=== PATIENT | female | born 1980 | race Caucasian/White ===

== ENCOUNTER 2019-10-14 01:15 | Emergency (ER) | payer OTHER, SELFPAY ==
[2019-10-14 01:17] VITALS: BP 100/77; PULSE 83; TEMP 36.9; O2SAT 98; BMI 24.7
--- NOTE | 2019-10-14 01:57 | CT_ITS ---
STUDY: CT ABDOMEN AND PELVIS WITHOUT CONTRAST REASON FOR EXAM: Female, 39 years old. LOWER BACK PAIN RIGHT SIDE, NEGATIVE PREG TEST RADIATION DOSAGE (If Supplied By Facility): CTDIvol = ( 6.04 ) mGy, DLP = ( 289.93 ) mGycm TECHNIQUE: Transaxial images were obtained from the dome of the diaphragm to the symphysis pubis without oral contrast, and without intravenous contrast. Sagittal and coronal images were reconstructed. Individualized dose optimization techniques were used for this CT. COMPARISON: None. FINDINGS: There is a small right pleural effusion. The visualized portions of the heart are within normal limits. Normal liver. Normal gallbladder and extrahepatic biliary system. Normal spleen. Normal pancreas. Normal bilateral adrenal glands. Normal right kidney. Normal left kidney. Normal visualized stomach. Normal small intestine. Normal colon. The appendix is visualized and appears normal. Normal abdominal aorta. Normal inferior vena cava. Normal retroperitoneum. Normal urinary bladder. There is 7 x 5.5 cm mass on the left side of the pelvis may represent an ovarian mass or hemorrhagic cyst. Normal abdominal wall. 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 There is a small right pleural effusion. There is 7 x 5.5 cm mass on the left side of the pelvis may represent an ovarian mass or hemorrhagic cyst. Electronically Signed: Dean Persaud, at 3:56 EDT Tel , Service support ,
[2019-10-14] MEDS: Ketorolac 30 MG/ML Syringe IV (02:10)
[2019-10-14] MEDS: 0.9% Normal Saline 1,000 ML 1000 ML IV (02:11)
[2019-10-14 02:18] LABS: Absolute Lymphocyte Count 0.89 X10^3/uL (0.83-4.51); Absolute Neutrophil Count 8.3 X10^3/uL (2.0-7.7); Basophil# 0.04 X10^3/uL; Basophil% 0.4 % (0-1); Eosinophil# 0.05 X10^3/uL; Eosinophils% 0.5 % (0-5); Hematocrit 38.1 % (37-47); Hemoglobin 12.3 g/dL (12.0-15.0); Lymphocyte # 0.89 X10^3/ul (4.0); Lymphocyte % 8.8 % (19-41); Mean Corp Hgb Conc 32.3 g/dL (32-36); Mean Corpuscular Hgb 29.4 pg (27.0-32.0); Mean Corpuscular Volume 90.9 fL (81-99); Mean Platelet Vol. 10.5 fl (6.2-12.0); Monocyte# 0.85 X10^3/uL; Monocyte% 8.4 % (0-10); NRBC Flagged by Analyzer 0 % (0-5); Neutrophil # 8.25 X10^3/uL (2.7-7.7); Neutrophil % 81.7 % (47-70); Platelet Count 208 K/mm3 (150-450); RBC Distribution Width CV 12.3 % (11.6-14.6); RBC Distribution Width SD 40.7 fl (35.1-43.9); Red Blood Count 4.19 M/mm3 (4.2-5.4); White Blood Count 10.1 K/mm3 (4.4-11.0)
[2019-10-14 02:29] LABS: Internal QC Validated? YES +Cl - CLEAR BKGD; Pregnancy, Serum, hCG Quali. NEGATIVE Negative
[2019-10-14 02:36] LABS: ALB/GLOB Ratio 0.9 RATIO (0.9-2.4); AST(SGOT) 12 U/L (15-37); Alanine Aminotransfer ALT/SGPT 16 U/L (13-56); Albumin, Serum 3.3 g/dL (3.2-5.0); Alkaline Phosphatase 61 U/L (45-117); Anion Gap 5 (5-15); BUN 9 mg/dL (7-18); Calcium,Total 8.7 mg/dL (8.5-10.1); Chloride 108 mmol/L (98-107); Creatinine, Serum 0.56 mg/dL (0.55-1.02); EST Glomerular Filtration Rate 126 mL/min (>60); Est Glom Filt Rate - Afr Amer 153 mL/min (>60); Estimated Creatinine Clearance 109.36 ml/min; Globulin 3.7 g/dL (2.2-4.2); Glucose 104 mg/dL (74-106); Lipase 60 U/L (73-393); Potassium 3.5 mmol/L (3.5-5.1); Sodium Level 143 mmol/L (136-145)
[2019-10-14] MEDS: Morphine 4 MG/ML Syringe IV (03:27)
[2019-10-14 03:36] LABS: Bacteria 0 SEEN /hpf (None Seen); Mucous, Urine 0 SEEN /hpf (<or=2+); Squamous Epithelial Cells - UA 0 SEEN /hpf (5-10); White Blood Cells 0 SEEN /hpf (0-5)
[2019-10-14 03:43] LABS: Color, Urine Yellow (Yellow); Glucose, Dipstick Normal (Normal); Ketone-Dipstick Negative (Negative); Leukocyte Esterase-Dipstick Negative /ul (Negative); Nitrite-Dipstick Negative (Negative); Occult Blood-Urine 25 /ul (Negative); Protein-Dipstick Negative (Negative); Urine Bilirubin Dipstick Negative (Negative); Urine Clarity Clear (Clear); Urine Urobilinogen Normal (Normal)
[2019-10-14 03:48] LABS: Red Blood Cells-Urine 5-10 SEEN /hpf (0-5)
[2019-10-14 03:55] VITALS: BP 105/60; PULSE 65; RESP 18; O2SAT 99
--- NOTE | 2019-10-14 04:37 | ED.DCSUM_ITS ---
- ER Visit Summary Date of Service: 10/14/19 Chief Complaint: Right flank pain History of Present Illness: The patient is a 39 F with right flank pain that started last night overnight. Worse with breathing and moving. It does not radiate. 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 No sh ortness of breath, fever, or cough. Physical Examination: Afebrile and vital signs unremarkable. Patient alert and oriented. No acute distress. She does have some right flank tenderness to palpation. No guarding or rebound. Otherwise her exam is unremarkable. Test Results and emergency department course: test negative. Urinalysis showed a very small amount of red blood cells, 5-10. No sign of infection. CBC, CMP, lipase unremarkable. CT shows chronic spine degenerative changes as well as a small right pleural effusion. There is a 7 x 5 cm mass in the left pelvis concerning for mass or cyst. Patient is not having pain on the left side. Her work-up does not explain her right flank pain. I suppose she may have a cyst with some diaphragmatic irritation causing her symptoms. She is feeling well after pain medicine and would like to go home and follow-up as an outpatient. Believe this is reasonable. She has a doctor and will follow-up for ultrasound. Ultrasound is not available at this time of day, and the patient was explicitly advised that she will need a follow-up ultrasound. I also explained risks of torsion and other surgical complications, and she will return right away if she has any issues. She will not wait for outpatient follow-up. Patient was given a course of pain medicine and will be discharged. All questions were answered. Treatment Plan: As above Disposition: Discharge Impression: Right flank pain, left ovarian mass This note was generated with [employer] dictation software. It may contain incorrect words, spelling, and punctuation that were not noted in review of the chart prior to signing ED Disposition - Plan for ED Patient: Referrals: Soco Kimball MD [Primary Care Provider] -
--- NOTE | 2019-10-14 04:41 | ED.DEP ---
ED Disposition - Plan for ED Patient: Instructions: ED Flank Pain Uncertain Cause Prescriptions: Oxycodone HCl/Acetaminophen [Percocet 5/325] 1 tab PO Q6H PRN PRN 3 Days #12 tab PRN Reason: Pain Prescription Printed Referrals: Soco Kimball MD [Primary Care Provider] -
[2019-10-14 04:55] VITALS: BP 117/83; PULSE 99; RESP 18; O2SAT 97
== END 2019-10-14 04:58 | disposition home or self-care (01) ==
PROVIDERS: Emergency Provider Emergency Medicine; PCP Family Medicine
DX: R10.9 Unspecified abdominal pain (principal)
CPT/HCPCS: 74176; 80053; 81001; 83690; 84703; 85025; 96361; 96374; 96375; 99283; J7030

== ENCOUNTER → 2019-10-17 13:41 | Outpatient (CLI) | payer SELFPAY ==
[2019-10-14 01:17] VITALS: BMI 24.7
--- NOTE | 2019-10-17 13:49 | US_ITS ---
STUDY: ULTRASOUND OF THE FEMALE PELVIS - COMPLETE REASON FOR EXAM: Female, 39 years old. Ovarian cyst TECHNIQUE: Transabdominal and Transvaginal TECHNICAL QUALITY: Adequate. COMPARISON: CT dated 10/14/2019 FINDINGS: The uterus is anteverted and is in a midline position. The uterus measures 10.0 x 5.1 x 4.0 cm. Normal uterine cervix. The endometrium measures 9 mm in thickness, and is hyperechoic. There is no demonstrated endometrial mass. There is no demonstrated myometrial mass. The right ovary is visualized. The right ovary measures 1.9 x 1.3 x 1.1 cm. There is no right ovarian cyst or ovarian mass. There is no visualized right adnexal mass or complex lesion. There is normal arterial and normal venous vascularity. The left ovary is visualized. The left ovary measures 7.6 x 6.1 x 4.5 cm. There is a 7.0 x 5.3 x 4.7 cm complex cyst in the left ovary. There is no visualized left adnexal mass or complex lesion. There is normal arterial and normal venous vascularity. There is no fluid in the cul-de-sac. US/Pelvic (Non ) IMPRESSION: 7.0 x 5.3 x 4.7 cm complex cyst in the left ovary. May represent an endometrioma. Follow-up sonography or further evaluation with MRI is recommended. Otherwise, unremarkable pelvic ultrasound. Electronically Signed: Jose F Rosenthal, at 16:40 EDT Tel , Service support ,
--- NOTE | 2019-10-17 13:50 | US_ITS ---
STUDY: ULTRASOUND OF THE FEMALE PELVIS - COMPLETE REASON FOR EXAM: Female, 39 years old. Ovarian cyst TECHNIQUE: Transabdominal and Transvaginal TECHNICAL QUALITY: Adequate. COMPARISON: CT dated 10/14/2019 FINDINGS: The uterus is anteverted and is in a midline position. The uterus measures 10.0 x 5.1 x 4.0 cm. Normal uterine cervix. The endometrium measures 9 mm in thickness, and is hyperechoic. There is no demonstrated endometrial mass. There is no demonstrated myometrial mass. The right ovary is visualized. The right ovary measures 1.9 x 1.3 x 1.1 cm. There is no right ovarian cyst or ovarian mass. There is no visualized right adnexal mass or complex lesion. There is normal arterial and normal venous vascularity. The left ovary is visualized. The left ovary measures 7.6 x 6.1 x 4.5 cm. There is a 7.0 x 5.3 x 4.7 cm complex cyst in the left ovary. There is no visualized left adnexal mass or complex lesion. There is normal arterial and normal venous vascularity. There is no fluid in the cul-de-sac. US/Transvaginal Non- IMPRESSION: 7.0 x 5.3 x 4.7 cm complex cyst in the left ovary. May represent an endometrioma. Follow-up sonography or further evaluation with MRI is recommended. Otherwise, unremarkable pelvic ultrasound. Electronically Signed: Jose F Galo, at 16:40 EDT Tel , Service support ,
== END ==
PROVIDERS: PCP Family Medicine; Referring Provider Family Medicine; Visit Provider Family Medicine
DX: R10.9 Unspecified abdominal pain (principal)
CPT/HCPCS: 76830; 76856

== ENCOUNTER → 2019-11-06 15:57 | Outpatient (CLI) | payer OTHER, SELFPAY ==
[2019-10-14 01:17] VITALS: BMI 24.7
[2019-11-08 13:48] LABS: Cancer Antigen 125 15.6 U/mL (0.0-38.1)
[2019-11-11 20:32] LABS: HPV Reflexed? NOT INDICATED
== END ==
PROVIDERS: PCP Family Medicine; Visit Provider Obstetrics & Gynecology
DX: Z12.4 Encounter for screening for malignant neoplasm of cervix (principal); N83.209 Unspecified ovarian cyst, unspecified side
CPT/HCPCS: 36415; 86304; 88175; G0145

== ENCOUNTER → 2020-05-18 11:58 | Outpatient (CLI) | payer OTHER, SELFPAY ==
[2020-05-20 14:43] LABS: Cancer Antigen 125 25.1 U/mL (0.0-38.1)
== END ==
PROVIDERS: PCP Family Medicine; Visit Provider Obstetrics & Gynecology
DX: N83.202 Unspecified ovarian cyst, left side (principal)
CPT/HCPCS: 36415; 86304

== ENCOUNTER 2020-06-14 09:31 | Inpatient (IN) | payer SELFPAY, OTHER ==
[2020-06-10 13:14] LABS: Absolute Lymphocyte Count 1.39 X10^3/uL (0.83-4.51); Absolute Neutrophil Count 2.8 X10^3/uL (2.0-7.7); Basophil# 0.06 X10^3/uL; Basophil% 1.3 % (0-1); Eosinophil# 0.06 X10^3/uL; Eosinophils% 1.3 % (0-5); Hematocrit 41.7 % (37-47); Hemoglobin 14.2 g/dL (12.0-15.0); Lymphocyte # 1.39 X10^3/ul (4.0); Lymphocyte % 30.2 % (19-41); Mean Corp Hgb Conc 34.1 g/dL (32-36); Mean Corpuscular Hgb 29.9 pg (27.0-32.0); Mean Corpuscular Volume 87.8 fL (81-99); Mean Platelet Vol. 10.8 fl (6.2-12.0); Monocyte# 0.31 X10^3/uL; Monocyte% 6.7 % (0-10); NRBC Flagged by Analyzer 0 % (0-5); Neutrophil # 2.78 X10^3/uL (2.7-7.7); Neutrophil % 60.3 % (47-70); Platelet Count 259 K/mm3 (150-450); RBC Distribution Width CV 12.1 % (11.6-14.6); RBC Distribution Width SD 38.9 fl (35.1-43.9); Red Blood Count 4.75 M/mm3 (4.2-5.4); White Blood Count 4.6 K/mm3 (4.4-11.0)
[2020-06-10 13:20] LABS: International Normalized Ratio 0.9
[2020-06-10 13:53] LABS: Creatinine, Serum 0.64 mg/dL (0.55-1.02); EST Glomerular Filtration Rate 108 mL/min (>60); Est Glom Filt Rate - Afr Amer 130 mL/min (>60)
--- NOTE | 2020-06-13 19:45 | PCM.HP.BLA ---
History and Physical Date of Admission: 06/14/20 Surgical History and Physical Eulalia Feranndes, a 39 year old female 5 0 0 0 5, presents for JEM/BSO on June 14, 2020 at 7:30. -- Continued Pain from Endometrioma; Left Complex Ovarian Cyst; Left Ovarian Endometrioma -- U/S showed 7 cm complex cyst on Lt ovari. She has painful menses. She has some pain when she is not on her menses. Reports she continues to have pain/discomfort on her (L) side if she is working or bending. Reports last October when she was here, she had an ovarian cyst on the (L) and endometriosis pain, and she has been feeling these same types of pains in the last couple of months. Has been having a lot of cramping/aching. Previous Cyst on (L) Ovary 10/2019 which began October 2019 on US. Eulalia claims it started gradually and has been present LLQ pain periodically. It occurs intermittantly. It is located in the LLQ of the abdomen. Eulalia characterizes the quality cramping. Eulalia characterizes the quality aching. Severity is moderate and very concerned. MEDICATIONS HISTORY: ALLERGIES: No Known Drug Allergies Infections - Chicken pox Illnesses - none Accidents - None Hospitalizations - dehydration Review of Systems: GENERAL - Denies fever, or chills SKIN - Denies skin changes EYES - Denies visual changes EARS - Denies difficulty hearing NOSE - Denies nasal congestion or bleeding MOUTH - Denies sore throat or difficulty swallowing NECK - Denies pain or swelling RESPIRATORY - Denies shortness of breath or wheezing CARDIOVASCULAR - Denies palpitations or chest pain GASTROINTESTINAL - Denies nausea, vomiting, diarrhea, constipation GENITOURINARY - Denies dysuria, frequency of urination, incontinence of urine MUSCULOSKELETAL - Denies joint or muscle pain NEUROLOGICAL - Denies localized numbness or weakness PSYCHIATRIC - Denies depression or anxiety ENDOCRINE - Denies heat or cold intolerance, weight loss or gain HEMATO-IMMUNOLOGIC - Denies excesive bleeding with cuts SOCIAL HISTORY: Alcohol Use - denies use Smoking - denies use Diet - balanced Diet Lifestyle - Exercise - regular Seat Belt Use - always 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 Illicit Drug Use - denies use of street drugs Sexual Activity - Residence - owns a home Place of - [place] Spouse-Sig Other Name - Marylou Fernandes Spouse-Sig Other Occupation - Timber cutting Children Name(s) - Gladys (13), Ev (12), Nadir (9), Yessi (7), Brooke (2) Control - NONE FAMILY HISTORY: MENSTRUAL HISTORY: LMP Known?- DefiniteAmount/Duration - 3 days, Regularity - Regular, Frequency - monthly days, LMP - 06/07/20, Age Onset Menarche - 11 PAST PREGNANCIES: Total Pregnancies - 5; Full Term Pregnancies - 5; Premature - 0; Abortions, Induced - 0; Abortions, Spontaneous - 0; Ectopics - 0; Multiple Births - 0; Living Children - 5 PHYSICAL EXAM BP- 110/78 Sitting, Right arm, regular cuff Weight- 119.36918 lbs Height- 61 inch BMI:22.53 CONSTITUTIONAL - NAD, well nourished, and well developed HEENT - Normocephalic, PERRLA, EOMI NECK - No nodes, no nuchal rigidity and thyroid normal size and texture LUNGS - CTA x2 without wheezes, crackles or rales CARDIAC - Regular rate and rhythm without rubs, murmurs, or gallops NEUROLOGICAL - Cranial nerves II-XII grossly intact PSYCHIATRIC - A and O to time, place, person, mood and affect External Genitial Vagina - non-tender without lesions Urethra/Urethral Meatus - non-tender Bladder - non-tender Vagina - vaginal escalona are pink and moist without loss of rugae and no evidence of atropy Cervix - without cervical motion tenderness and has normal size and features without evident lesions Uterus - 5-6 cm in size, mobile and nontender Adnexa - clear without massess or tenderness and exquisite tenderness in the cul-de-sac and with moving the cervix ASSESSMENT/PLAN: 1. Endometriosis Ovary U/S c/w endometrioma. CA-125 was 16. Discussed optons for treatment including L/S LSO of endometrioma, RAVH/BSO or expectant management with repeat u /s and CA-125 in 6 months. Pt desires proceeding with RAVH/BSO possible JEM/BSO. Discussed RBAs and all questions answered.
[2020-06-14] VITALS (14 sets, daily range): BP systolic 92–112; BP diastolic 63–79; PULSE 62–96; RESP 14–16; TEMP 36.2–37.4; O2SAT 96–100; BMI 22.0
--- NOTE | 2020-06-14 | OV_PTH ---
PATIENT: SKYE LYLE LOC: [facility]3 U#:[id number] AGE/SX: 39/F ROOM: MS316 RE06/14/[address]: Dr. Ruslan Cabrales MD : 1980 BED: 1 DIS: 06/18/2020 SPEC #: [id number] RECD: 06/14/20 12:39 STATUS: GERALDINE REErvin #: [id number] SINDHU: 06/14/20 00:[address]: Ruslan Cabrales DEPT: SURGICAL PATHOLOGY RECD BY: Elizabeth Tijerina ENTERED: 06/14/20 14:26 SP TYPE: OVARY OTHR DR: Dr. Soco Kimball MD Tissues: A - Left ovary B - Uterus, NOS Procedures: Frozen Section (charge) Frozen Section Add'l ([facility]) Surgery Specimen Level V Comments: Sent 06/17/20 via [facility] to [facility] for consult. Delayed in transit. Another set of slides were sent again on 07/01/20 via [employer], arrived next day. Results from [facility] 07/07/20. HEADER OPERATION: Total abdominal hysterectomy, bilateral salpingo-oophorectomy PRE-OP DIAGNOSIS: Left complex ovarian cyst, pelvic pain, endometriosis TISSUE SUBMITTED: A - Left ovary, FS, B - Uterus, cervix, right fallopian tube, right ovary FROZEN SECTION DIAGNOSIS A. Left ovary and fallopian tube, salpingo-oophorectomy: Mucinous cystadenoma. AM:steven 06/14/2020 MICROSCOPIC DIAGNOSIS A. Left ovary and fallopian tube, salpingo-oophorectomy: Borderline mucinous tumor, intestinal type with focal intraepithelial carcinoma. Fallopian tube - no pathologic diagnosis. See comment. B. Uterus, cervix, right fallopian tube and right ovary, abdominal hysterectomy and right salpingo-oophorectomy: Cervix - chronic cystic cervicitis. Endometrium - early secretory endometrium. Myometrium - no pathologic diagnosis. Right fallopian tube - no pathologic diagnosis. Right ovary - physiologic follicular and corpus luteal cysts. - Simple benign epithelial cyst (0.3 cm in greatest dimension). SJ:steven 07/07/2020 COMMENT A. All the slides containing ovarian tumor are sent to [facility] for expert opinion and reviewed by Dr. Diaz and in consultation with Dr. Davis and the above diagnosis is rendered. The complete report is viewable in the patient's EMR. Clinical correlation and appropriate follow up are necessary. Case has been reviewed in consultation with Dr. Mckenna who concurs with the above diagnosis. IDC:AM MICROSCOPIC DESCRIPTION Slides are reviewed. GROSS DESCRIPTION A - Received fresh for frozen section consultation labeled with the patient's name is a specimen designated left complex ovarian cyst. The specimen consists of a smooth, glistening, cystic ovary measuring 13.5 x 9.5 x 6 cm and weighing 367 gm. Attached to it along one side is a grossly unremarkable fallopian tube measuring 6.5 x 0.5 cm. The external surface is inked and the specimen is serially sectioned to reveal multiple cysts in the ovary ranging in size from 0.2 to 7.8 cm in greatest dimension and containing clear mucoid material. Latin Dancer sections are submitted in eight cassettes as follows: 1-3 - frozen section, 4-7 - more sections of ovarian cyst, 8 - fallopian tube. B - Received in fixative is one container labeled with the patient's name and designated uterus. The specimen consists of a uterus with attached cervix and attached right fallopian tube and detached right ovary. The uterus with cervix measures 9.8 x 5 x 3.7 cm and weighs 80 gm. The ectocervix is unremarkable. The cervical os is oval in contour. The endocervical canal measures 3.8 cm in length and is grossly unremarkable. The triangular endometrial cavity measures 3.6 x 2.2 cm. The reddish-juarez endometrium measures up to 0.2 cm in thickness. The myometrium measures 1.6 cm in average thickness without any mass lesions. The right ovary is partly cystic, juarez-yellow, crinkled and measures 3?x 2 x 1.5 cm. Serial sections reveal multiple cysts ranging in size from 0.5 to 1 cm and containing clear to bloody fluid. The fallopian tube measures 8 cm in length and 0.4 cm in average diameter. A normal fimbriated end is visible. Latin Dancer sections are submitted as follows: 1 - anterior cervix, 2??posterior cervix, 3 & 4 - anterior uterine wall, 5 & 6 - posterior uterine wall, 7 - ovary, 8 - ovary and fallopian tube. / AM:steven 06/15/20 TC:0 CPT: 51275 x2, 86954, 89803 x2 ADDENDUM ADDENDUM ADDENDUM ADDENDUM ADDENDUM ADDENDUM 07/22/2020 09:31 ADDENDUM 07/22/2020 09:31 ADDENDUM 07/22/2020 09:31 ADDENDUM 07/22/2020 09:31 ADDENDUM 07/22/2020 09:31 Borderline mucinous tumor, intestinal type, with focal intraepithelial carcinoma. No evidence of microinvasion. The specimen is sent to [facility] for expert opinion, reviewed by Dr. Morse and the above diagnosis is rendered. The complete report is viewable in the patient's EMR.
[2020-06-14 10:21] LABS: Internal QC Validated? YES +Cl - CLEAR BKGD; Pregnancy, Urine Negative Negative
[2020-06-14] MEDS: Lactated Ringers 1,000 ML 100 ML IV ×2 (10:38→13:30)
--- NOTE | 2020-06-14 11:28 | PCM.OPRPT ---
Report of Operation Date of Procedure: 06/14/20 Pre-Operative Diagnosis: Left Complex Ovarian Cyst; Pelvic Pain Post-Operative Diagnosis: Left Ovarian Mucinous Cystadenofibroma; Pelvic Pain Surgery/Procedure Performed:: Total Abdominal Hysterectomy and Bilateral Salpingo-Oophorectomy Description of Surgical Findings:: 7 cm uterus with normal-appearing right fallopian tube and ovary with an approximate 1 to 2 cm cyst. Left ovary with 10 cm cyst filled with mucinous clear fluid with frozen section diagnosis showing mucinous cystadenofibroma. No evidence of malignancy or low malignant potential tumor present in several sections. four slide machine setter: Elizabeth Hernandez four slide machine setter: Kai Silverio Type of Anesthesia:: General - Endotracheal Anesthesiologist: Nataly Vick Specimen's removed: Uterus with bilateral fallopian tubes and ovaries Drains: Faustin to straight drain Estimated Blood Loss (mL): 150 cc Fluids Replaced: Crystalloid Description of Procedure: Surgeon: Ruslan Cabrales MD, FACOG Indications: This is a 39-year-old patient who his been having problems with increasing intermittent pelvic pain and was recently noted to have a 10 cm cystic structure in the left adnexa. It has been causing intermittent pain suspicious for intermittent torsion or endometrioma. CA-125 was normal. Given this the patient desires that we proceed with the above procedure. She has been counseled regarding the risk and indications of this procedure including the possibility of bleeding, infection, and injury to surrounding structures such as bowel bladder. She also understands if both ovaries are removed that she will need to be on hormone replacement therapy for an indefinite period of time. All questions were answered. Procedure: Patient was taken to the operating room where after induction of general anesthesia she was prepped and draped in the usual sterile fashion. A Faustin catheter was placed. The abdomen was entered through a Pfannenstiel incision and peritoneal cavity was entered bluntly. The left cystic ovary was identified and ligated at the base with 0 Vicryl suture. It was opened and noted to have mucinous clear fluid so it was sent to pathology for frozen section diagnosis as if this were a benign simple cyst then the right ovary could possibly be preserved lowering the patient to avoid long-term bone replacement therapy. Shirin retractor was placed. The mesosalpinx was therefore divided on the right and ligated with 0 Vicryl suture. Progressive bites were then taken down on either side of the uterine cervix ligating each pedicle with 0 Vicryl suture after developing a bladder flap. Final bites across the vaginal cuff incorporated the uterosacral ligaments into the vaginal cuff using 0 Vicryl suture and two [id number] sutures were placed across the vaginal cuff. Vaginal cuff and pelvic sidewall pedicles were oversewn where necessary to achieve hemostasis. At this point in the procedure the pathologist called the room and indicated that the frozen section diagnosis showed likely mucinous cystadenofibroma with no evidence of malignancy or low malignant potential tumor. Given that mucinous tumor has approximately 15 to 20% chance of occurring on the contralateral side it was decided to proceed with right oophorectomy. The base of the right ovary was ligated with 0 Vicryl suture x2 and hemostasis was noted. Peristalsis of the right and left ureter was noted. Pelvis was copiously irrigated removing all clot. [place] retractor was removed and rectus abdominis muscles were reapproximated in the midline with interrupted 0 Vicryl suture. 0 PDS strata fix was used to close the fascia in a running fashion and subcutaneous tissue was copiously irrigated with saline solution before closing with 3-0 Vicryl suture. 3-0 Monocryl suture was then used in running fashion to reapproximate skin edges area and Steri-Strips placed across the incision. Patient tolerated the procedure well was taken to recovery room in satisfactory condition; sponge instrument and needle counts were all reportedly correct. Estimated blood loss for the case was 150 cc. Cefotan 2 g IV was given prior to beginning the operative procedure. There were no apparent complications of the surgery. Specimen to pathology was uterus and bilateral fallopian tubes and ovaries. Grafts/Implants Used: None - Complications None - Admit VTE Documentation VTE Present on Admission: Yes VTE Mechan Device Prophylaxis: SCD's VTE Pharm Prophylaxis ordered?: Yes
--- NOTE | 2020-06-14 11:37 | PCM.DC.AHY ---
Discharge Diet: No Restrictions Discharge Activity: Return to Normal Activity - do what you feel comfortable, but do not over do it. You may climb stairs, just use caution and hold the railing., May Not Drive - for a few days or while taking narcotic pain medications., May Shower, May Take a Tub Bath May resume sexual activity in: 6 weeks - nothing in the vagina. Lifting Restrictions: 25 pounds for 6 weeks. Call your doctor if your incision/area has: Continuous Slow Oozing, Sudden Increased Bleeding, Increased Pain/ Swelling, Increased Redness, Foul Smelling Discharge Call your doctor if you observe: Fever of 101 or Higher, Inability to urinate, Inability to have a bowel movement, Using more than one pad per hour, - - Some vaginal bleeding may be noted for up to 4-8 weeks. Cleanse incision/area with: - - Let the soapy water run over your incision, rinse and pat dry. Additional Dressing/Incision Instructions:: The white strips (Steri Strips) on your incision will fall off on their own. Allergies/Adverse Reactions: Allergies No Known Allergies Allergy (Verified 06/09/20 08:06) Medications to take at Discharge Docusate Sodium [Colace] 100 mg PO BID PRN PRN #60 cap 06/14/20 Estradiol 2 mg PO DAILY #100 tab 06/14/20 Oxycodone [Oxyir] 5 mg PO Q6H PRN PRN 7 Days #20 tab 06/14/20 The following prescriptions were given: Docusate Sodium [Colace] 100 mg PO BID PRN PRN #60 cap PRN Reason: Constipation Transmission Status: Pending to [facility] Estradiol 2 mg PO DAILY #100 tab Transmission Status: Pending to [facility] Oxycodone [Oxyir] 5 mg PO Q6H PRN PRN 7 Days #20 tab PRN Reason: Pain Score 6-10 Transmission Status: Sent to [facility] Primary Care Physician: Soco Kimball MD [Primary Care Provider] - Test Results: Test results from this visit will be discussed in further detail at your follow-up appointment, if applicable. Please Follow Up With: Ruslan Cabrales MD - [phone] When: in 2 weeks, please call to make an appointment.
[2020-06-14] MEDS: Cefotetan 2 GM in 0.9% NS 100 ML IV (12:10)
[2020-06-14] MEDS: Acetaminophen 500 MG Tablet 1000 MG PO ×2 (18:15→23:28)
[2020-06-14] MEDS: Lactated Ringers 1,000 ML 150 ML IV ×2 (18:15→23:32)
[2020-06-14] MEDS: Ondansetron ODT 4 MG Tablet PO (19:12)
[2020-06-14] MEDS: Ketorolac 30 MG/ML Syringe IV (20:01)
[2020-06-14] MEDS: Enoxaparin 30 MG/0.3 ML Syringe SC (20:01)
[2020-06-14] MEDS: 0.9% Saline Lock 10 ML Syringe IV (20:01)
[2020-06-14] MEDS: Docusate Sodium 100 MG Capsule PO (21:22)
[2020-06-15] VITALS (8 sets, daily range): BP systolic 95–114; BP diastolic 60–71; PULSE 74–99; RESP 14–18; TEMP 36.8–37; O2SAT 98–100
[2020-06-15] MEDS: Ketorolac 30 MG/ML Syringe IV ×4 (02:48→20:38)
[2020-06-15] MEDS: 0.9% Saline Lock 10 ML Syringe IV ×3 (02:49→20:39)
[2020-06-15] MEDS: Ondansetron ODT 4 MG Tablet PO ×2 (03:59→14:18)
[2020-06-15] MEDS: Acetaminophen 500 MG Tablet 1000 MG PO ×3 (05:03→18:38)
[2020-06-15] MEDS: oxyCODONE 5 MG Tablet PO (05:19)
[2020-06-15] MEDS: Lactated Ringers 1,000 ML 150 ML IV (05:52)
[2020-06-15 06:40] LABS: Hematocrit 29.5 % (37-47); Hemoglobin 9.9 g/dL (12.0-15.0); Mean Corp Hgb Conc 33.6 g/dL (32-36); Mean Corpuscular Hgb 30.3 pg (27.0-32.0); Mean Corpuscular Volume 90.2 fL (81-99); Platelet Count 237 K/mm3 (150-450); RBC Distribution Width CV 12.3 % (11.6-14.6); RBC Distribution Width SD 40.5 fl (35.1-43.9); Red Blood Count 3.27 M/mm3 (4.2-5.4); White Blood Count 9.9 K/mm3 (4.4-11.0)
[2020-06-15 07:08] LABS: Creatinine, Serum 0.54 mg/dL (0.55-1.02); EST Glomerular Filtration Rate 130 mL/min (>60); Est Glom Filt Rate - Afr Amer 158 mL/min (>60); Estimated Creatinine Clearance 108.43 ml/min
--- NOTE | 2020-06-15 10:03 | PCM.PN.OB ---
Subjective: Patient without complaints. Tolerating liquid diet. Denies flatus. Still some nausea. Faustin catheter still in but removal planned this morning. Objective: Wound is clean, dry, intact covered by Mepilex dressing. Good urine output. Hemoglobin and creatinine okay. - Physical Exam Vitals/I&O's: Vital Signs Temp Pulse Resp BP Pulse Ox 98.2 F 78 18 95/62 98 06/15/20 04:54 06/15/20 07:01 06/15/20 04:54 06/15/20 07:01 06/15/20 09:56 Oxygen Flow Rate (L/min) 1 Oxygen Delivery Method Room Air Weight: 120 lb 9.486 oz Body Mass Index (BMI) 22.0 Intake and Output for Last 24 Hours 06/13/20 06/14/20 06/15/20 23:59 23:59 23:59 Intake Total 2994.17 / 2994.17 1150 / 1150 Output Total 800 / 800 600 / 600 Balance 2194.17 / 2194.17 550 / 550 Laboratory Results 06/14/20 10:10: Urine Test Negative 06/15/20 06:06: WBC 9.9, RBC 3.27 L, Hgb 9.9 L, Hct 29.5 L, MCV 90.2, MCH 30.3, MCHC 33.6, RDW Std Deviation 40.5, RDW Coeff of Joaquin 12.3, Plt Count 237, MPV 11.0 06/15/20 06:06: Creatinine 0.54 L, Estim Creat Clear Calc 108.43, Est GFR (MDRD) Af Amer 158, Est GFR (MDRD) Non-Af 130 Current Medications Acetaminophen (Acetaminophen 500 Mg Tablet) 1,000 mg PO Q6 [facility] Last Admin: 06/15/20 05:03 Dose: 1,000 mg Documented by: Docusate Sodium (Docusate Sodium 100 Mg Capsule) 100 mg PO BID [facility] Last Admin: 06/14/20 21:22 Dose: 100 mg Documented by: Lactated Ringer's () 1,000 mls @ 150 mls/hr IV .Q6H40M [facility] Stop: 06/15/20 15:58 Last Admin: 06/15/20 05:52 Dose: 150 mls/hr Documented by: Ketorolac Tromethamine (Ketorolac 30 Mg/Ml Syringe) 30 mg IV Q6H [facility] Stop: 06/16/20 02:01 Last Admin: 06/15/20 07:34 Dose: 30 mg Documented by: Magnesium Chloride (Magnesium Chloride 64 Mg Delay Rel.Tablet) 128 mg PO DAILY PRN PRN PRN Reason: Constipation Nutritional Formula (Lactose Free) (Ensure Enlive 120 Ml Liquid) 120 ml PO TIDCM [facility] Ondansetron HCl (Ondansetron Odt 4 Mg Tablet) 4 mg PO Q6H PRN PRN PRN Reason: NAUSEA Last Admin: 06/15/20 03:59 Dose: 4 mg Documented by: Oxycodone HCl (Oxycodone 5 Mg Tablet) 5 - 10 mg PO Q4H PRN PRN PRN Reason: Pain Score 4-10 Last Admin: 06/15/20 05:19 Dose: 5 mg Documented by: Simethicone (Simethicone 80 Mg Tablet) 80 mg PO Q12H PRN PRN PRN Reason: Gas pain Last Admin: 06/15/20 05:21 Dose: 80 mg Documented by: Sodium Chloride (0.9% Saline Lock 10 Ml Syringe) 10 - 40 ml IV UD PRN PRN Reason: SALINE FLUSH Last Admin: 06/15/20 07:34 Dose: 10 ml Documented by: Medical Necessity - Tobacco Use Smoking Status: Never smoker Assessment/Plan Doing well status post total abdominal hysterectomy and bilateral salpingo-oophorectomy. Continuing present care. Anticipate release tomorrow if good progress continues. Encouraged minimizing use of narcotic pain medications.
--- NOTE | 2020-06-15 10:50 | NURSING ---
CM Note RN CM Face to Face with patient for initial transition planning/care coordination assessment. RN CM introduced self and role at [facility]. Patient sitting up in chair, alert and oriented, at bedside. Patient willing to participate in assessment and is able to answer all questions appropriately. Care providers, pharmacy, and demographics verified. Patient wishes to discharge home, denies need for home health at this time. Patient states she has no further needs or concerns at this time. CM to follow for discharge planning needs that may arise. PCP: Rehana Specialists: Samra BELL CLEANER Preferred [facility]acy: [facility] Insurance: [facility] Aid/Self Pay Prescription Benefit: no Living Will/HPOA: no LNOK: Living Arrangements: Patient lives in a one story home with and two daughters. There are no steps to enter the home. Patient states she was independent at home. 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 She does not anticipate any further DME. Disposition Plan: Patient to discharge home with family support and follow-up plans in place.
[2020-06-15] MEDS: Docusate Sodium 100 MG Capsule PO ×2 (11:33→22:17)
[2020-06-15] MEDS: proMETHazine 25 MG Tablet 12.5 MG PO ×2 (16:44→20:36)
[2020-06-16] MEDS: 0.9% Saline Lock 10 ML Syringe IV (02:54)
[2020-06-16] MEDS: Ketorolac 30 MG/ML Syringe IV (02:54)
[2020-06-16 02:57] VITALS: BP 113/70; PULSE 91; RESP 16; TEMP 36.7; O2SAT 97
[2020-06-16] MEDS: proMETHazine 25 MG Tablet 12.5 MG PO ×6 (03:03→22:41)
[2020-06-16] MEDS: Acetaminophen 500 MG Tablet 1000 MG PO ×2 (05:56→11:44)
--- NOTE | 2020-06-16 08:59 | PCM.PN.OB ---
Subjective: Patient without complaints. Tolerating diet. Positive flatus. Still a bit of nausea but relieved well with Phenergan. Occasionally uses Phenergan at home nausea and has some there which she can use if needed. Objective: Wound is clean, dry, intact with Mepilex dressing covering. Good urine output. Minimal vaginal bleeding. - Physical Exam Vitals/I&O's: Vital Signs Temp Pulse Resp BP Pulse Ox 98.1 F 91 16 113/70 97 06/16/20 02:57 06/16/20 02:57 06/16/20 02:57 06/16/20 02:57 06/16/20 02:57 Oxygen Flow Rate (L/min) 1 Oxygen Delivery Method Room Air Weight: 120 lb 9.486 oz Body Mass Index (BMI) 22.0 Intake and Output for Last 24 Hours 06/14/20 06/15/20 06/16/20 23:59 23:59 23:59 Intake Total 2994.17 / 2994.17 2835 / 2835 200 / 200 Output Total 800 / 800 1900 / 1900 300 / 300 Balance 2194.17 / 2194.17 935 / 935 -100 / -100 Current Medications Acetaminophen (Acetaminophen 500 Mg Tablet) 1,000 mg PO Q6 [facility] Last Admin: 06/16/20 05:56 Dose: 1,000 mg Documented by: Docusate Sodium (Docusate Sodium 100 Mg Capsule) 100 mg PO BID [facility] Last Admin: 06/15/20 22:17 Dose: 100 mg Documented by: Magnesium Chloride (Magnesium Chloride 64 Mg Delay Rel.Tablet) 128 mg PO DAILY PRN PRN PRN Reason: Constipation Nutritional Formula (Lactose Free) (Ensure Enlive 120 Ml Liquid) 120 ml PO TIDCM [facility] Last Admin: 06/15/20 16:42 Dose: Not Given Documented by: Ondansetron HCl (Ondansetron Odt 4 Mg Tablet) 4 mg PO Q6H PRN PRN PRN Reason: NAUSEA Last Admin: 06/15/20 14:18 Dose: 4 mg Documented by: Oxycodone HCl (Oxycodone 5 Mg Tablet) 5 - 10 mg PO Q4H PRN PRN PRN Reason: Pain Score 4-10 Last Admin: 06/15/20 05:19 Dose: 5 mg Documented by: Promethazine HCl (Promethazine 25 Mg Tablet) 12.5 mg PO Q3H PRN PRN PRN Reason: NAUSEA/VOMITING Last Admin: 06/16/20 03:03 Dose: 12.5 mg Documented by: Simethicone (Simethicone 80 Mg Tablet) 80 mg PO Q12H PRN PRN PRN Reason: Gas pain Last Admin: 06/15/20 18:38 Dose: 80 mg Documented by: Sodium Chloride (0.9% Saline Lock 10 Ml Syringe) 10 - 40 ml IV UD PRN PRN Reason: SALINE FLUSH Last Admin: 06/16/20 02:54 Dose: 10 ml Documented by: Medical Necessity - Tobacco Use Smoking Status: Never smoker Assessment/Plan Doing well postoperative day #2 status post total abdominal hysterectomy and bilateral salpingo-oophorectomy. Will discharge to home with routine instructions.
[2020-06-16] MEDS: Docusate Sodium 100 MG Capsule PO ×2 (09:01→20:05)
[2020-06-16 09:06] VITALS: BP 114/60; PULSE 103; RESP 16; TEMP 37; O2SAT 100
[2020-06-16 09:10] VITALS: PULSE 104
--- NOTE | 2020-06-16 12:29 | PHA.DC.MC ---
Addendum entered and electronically signed by Radha Fournier 06/18/20 12:42: New prescription sent. Patient was counseled and was able to verbally demonstrate an understanding of discharge med. 1. PANTOPRAZOLE 40MG PO DAILY Original Note: Pharmacy Service has performed discharge medication reconciliation and counseling for this patient. 1. ESTRADIOL 2MG PO DAILY 2. OXYCODONE 5MG PO Q6H PRN PAIN 6-10 3. DOCUSATE 100MG PO BID PRN CONSTIPATION The patient's discharge medication list was reviewed for discrepancies and discrepancies were resolved. Home Medications Docusate Sodium [Colace] 100 mg PO BID PRN PRN #60 cap 06/14/20 Estradiol 2 mg PO DAILY #100 tab 06/14/20 Oxycodone [Oxyir] 5 mg PO Q6H PRN PRN 7 Days #20 tab 06/14/20 The patient was counseled on the following discharge medications and changes in medications for homegoing were reviewed. The Reason for Use, instructions for use, and potential side effects were reviewed for all new medications. The patient's questions regarding all of their medications were answered. The patient was able to verbally demonstrate an understanding of their discharge medications.
--- NOTE | 2020-06-16 13:16 | NURSING ---
CALLED TO ROOM BY FOR NAUSEA. STATES THREW UP ALL BREAKFAST, WAS NOT REPORTED TO THIS NURSE UNTIL NOW. PHENERGAN GIVEN PER ORDER AT THIS TIME.
[2020-06-16 15:20] VITALS: BP 119/61; PULSE 102; RESP 16; TEMP 36.8; O2SAT 98
[2020-06-16] MEDS: Lactated Ringers 1,000 ML 150 ML IV ×2 (16:00→22:39)
--- NOTE | 2020-06-16 18:08 | PN.OBGYN_ITS ---
Subjective: Called regarding patient who was unable to be discharged today due to having problems with nausea and vomiting. Last dose of narcotic pain medication was about 5 AM today. Pain is been well controlled with p.o. Tylenol. She is able to eat food but then vomits the food back up. She has some problems with nausea at home and keeps Phenergan on hand. Patient has flatus today but has not yet had a bowel movement. She denies any diarrhea and has no abdominal pain even from the surgical incision except when she has vomiting. Patient is afebrile with stable vital signs. Given that the patient is unable to hold down substantial amounts of p.o. fluids her IV was restarted. She has been given some oral Phenergan. Examination shows a soft and nondistended abdomen with incision intact and good bowel sounds noted. My suspicion is that this is likely gastritis so we will continue oral Tylenol which has worked well to control her pain today. We will give Protonix this evening and check labs in the morning. We will also continue on liquid diet this evening and switch to regular diet in the morning if this is tolerated. If nausea persists, we may need to have medical consultation. - Physical Exam Vitals/I&O's: Vital Signs Temp Pulse Resp BP Pulse Ox 98.2 F 102 H 16 119/61 98 06/16/20 15:20 06/16/20 15:20 06/16/20 15:20 06/16/20 15:20 06/16/20 15:20 Oxygen Flow Rate (L/min) 1 Oxygen Delivery Method Room Air Weight: 120 lb 9.486 oz Body Mass Index (BMI) 22.0 Intake and Output for Last 24 Hours 06/14/20 06/15/20 06/16/20 23:59 23:59 23:59 Intake Total 2994.17 / 2994.17 2835 / 2835 600 / 600 Output Total 800 / 800 1900 / 1900 900 / 900 Balance 2194.17 / 2194.17 935 / 935 -300 / -300 Current Medications Acetaminophen (Acetaminophen 500 Mg Tablet) 1,000 mg PO Q6 [facility] Last Admin: 06/16/20 18:05 Dose: Not Given Documented by: Docusate Sodium (Docusate Sodium 100 Mg Capsule) 100 mg PO BID [facility] Last Admin: 06/16/20 09:01 Dose: 100 mg Documented by: Lactated Ringer's () 1,000 mls @ 150 mls/hr IV .Q6H40M [facility] Last Admin: 06/16/20 16:00 Dose: 150 mls/hr Documented by: Magnesium Chloride (Magnesium Chloride 64 Mg Delay Rel.Tablet) 128 mg PO DAILY PRN PRN PRN Reason: Constipation Ondansetron HCl (Ondansetron Odt 4 Mg Tablet) 4 mg PO Q6H PRN PRN PRN Reason: NAUSEA Last Admin: 06/15/20 14:18 Dose: 4 mg Documented by: Pantoprazole Sodium (Pantoprazole Sodium 20 Mg Tablet) 20 mg PO BID [facility] Promethazine HCl (Promethazine 25 Mg Tablet) 12.5 mg PO Q3H PRN PRN PRN Reason: NAUSEA/VOMITING Last Admin: 06/16/20 16:20 Dose: 12.5 mg Documented by: Simethicone (Simethicone 80 Mg Tablet) 80 mg PO Q12H PRN PRN PRN Reason: Gas pain Last Admin: 06/16/20 09:01 Dose: 80 mg Documented by: Sodium Chloride (0.9% Saline Lock 10 Ml Syringe) 10 - 40 ml IV UD PRN PRN Reason: SALINE FLUSH Last Admin: 06/16/20 02:54 Dose: 10 ml Documented by: Medical Necessity - Tobacco Use Smoking Status: Never smoker
[2020-06-16 20:05] VITALS: BP 107/73; PULSE 102; RESP 16; TEMP 37; O2SAT 98
[2020-06-16] MEDS: Pantoprazole Sodium 20 MG Tablet PO (20:05)
[2020-06-16] MEDS: Ibuprofen 600 MG Tablet PO (23:08)
[2020-06-17] VITALS (10 sets, daily range): BP systolic 107–116; BP diastolic 69–74; PULSE 95–112; RESP 14–16; TEMP 36.6–37.3; O2SAT 96–100
--- NOTE | 2020-06-17 00:20 | NURSING ---
pt had called out and reported she vomited. 600 cc of juarez emesis noted. vss. no change in physical assessment. pt denies nausea since vomiting and denies further needs.
[2020-06-17] MEDS: Lactated Ringers 1,000 ML 150 ML IV (05:22)
[2020-06-17] MEDS: proMETHazine 25 MG Tablet 12.5 MG PO ×2 (05:44→09:07)
[2020-06-17 06:45] LABS: Absolute Lymphocyte Count 1.27 X10^3/uL (0.83-4.51); Absolute Neutrophil Count 7.1 X10^3/uL (2.0-7.7); Basophil# 0.03 X10^3/uL; Basophil% 0.3 % (0-1); Eosinophil# 0.01 X10^3/uL; Eosinophils% 0.1 % (0-5); Hematocrit 22.2 % (37-47); Hemoglobin 7.2 g/dL (12.0-15.0); Lymphocyte # 1.27 X10^3/ul (4.0); Lymphocyte % 13.9 % (19-41); Mean Corp Hgb Conc 32.4 g/dL (32-36); Mean Corpuscular Hgb 30.3 pg (27.0-32.0); Mean Corpuscular Volume 93.3 fL (81-99); Monocyte% 7.7 % (0-10); NRBC Flagged by Analyzer 0 % (0-5); Neutrophil # 7.05 X10^3/uL (2.7-7.7); Neutrophil % 77.5 % (47-70); Platelet Count 179 K/mm3 (150-450); RBC Distribution Width SD 43.8 fl (35.1-43.9); Red Blood Count 2.38 M/mm3 (4.2-5.4); White Blood Count 9.1 K/mm3 (4.4-11.0)
[2020-06-17 07:10] LABS: Anion Gap 6 (5-15); Chloride 107 mmol/L (98-107); Potassium 3.1 mmol/L (3.5-5.1); Sodium Level 142 mmol/L (136-145)
[2020-06-17] MEDS: Pantoprazole Sodium 20 MG Tablet PO (09:07)
[2020-06-17] MEDS: Docusate Sodium 100 MG Capsule PO (09:07)
[2020-06-17] MEDS: 0.9% Saline Lock 10 ML Syringe IV ×2 (09:23→10:57)
--- NOTE | 2020-06-17 09:23 | PCM.PN.OB ---
Subjective: Patient continues with nausea and vomiting unabated by oral Protonix for oral Phenergan. Positive flatus. Tolerates liquids poorly. Denies much in the way of pain around her hysterectomy incision and has minimal vaginal bleeding. IV fluids started last evening. She indicates that she is thirsty but cannot keep fluids down. Objective: Wound is clean, dry, intact with Mepilex dressing covered. Good bowel sounds noted on exam but abdomen is tender especially in the upper abdomen possibly from her continuous nausea and vomiting. Hemoglobin appropriate given IV hydration overnight. White count is not elevated. Potassium is 3.1 probably from recent nausea and vomiting. - Physical Exam Vitals/I&O's: Vital Signs Temp Pulse Resp BP Pulse Ox 98.9 F 97 16 107/72 99 06/17/20 08:10 06/17/20 08:10 06/17/20 08:10 06/17/20 08:10 06/17/20 08:10 Oxygen Flow Rate (L/min) 1 Oxygen Delivery Method Room Air Weight: 120 lb 9.486 oz Body Mass Index (BMI) 22.0 Intake and Output for Last 24 Hours 06/15/20 06/16/20 06/17/20 23:59 23:59 23:59 Intake Total 2835 / 2835 1597.5 / 1597.5 1125 / 1125 Output Total 1900 / 1900 900 / 900 1300 / 1300 Balance 935 / 935 697.5 / 697.5 -175 / -175 Laboratory Results 06/17/20 06:20: WBC 9.1, RBC 2.38 L, Hgb 7.2 L, Hct 22.2 L, MCV 93.3, MCH 30.3, MCHC 32.4, RDW Std Deviation 43.8, RDW Coeff of Joaquin 13.0, Plt Count 179, MPV 11.0, Immature Gran % (Auto) 0.500, Neut % (Auto) 77.5 H, Lymph % (Auto) 13.9 L, [place] % (Auto) 7.7, Eos % (Auto) 0.1, Baso % (Auto) 0.3, Absolute Neuts (auto) 7.1, Absolute Lymphs (auto) 1.27, Nucleated RBC % 0 06/17/20 06:20: Sodium 142, Potassium 3.1 L, Chloride 107, Carbon Dioxide 29.0, Anion Gap 6 Current Medications Docusate Sodium (Docusate Sodium 100 Mg Capsule) 100 mg PO BID [facility] Last Admin: 06/17/20 09:07 Dose: 100 mg Documented by: Potassium Chloride/Sodium Chloride () 1,000 mls @ 125 mls/hr IV .Q8H [facility] Pantoprazole Sodium 40 mg/ (Sodium Chloride) 110 mls @ 330 mls/hr IV Q12 [facility] Ibuprofen (Ibuprofen 600 Mg Tablet) 600 mg PO Q6H PRN PRN PRN Reason: Pain Score 1-10 Last Admin: 06/16/20 23:08 Dose: 600 mg Documented by: Magnesium Chloride (Magnesium Chloride 64 Mg Delay Rel.Tablet) 128 mg PO DAILY PRN PRN PRN Reason: Constipation Ondansetron HCl (Ondansetron Odt 4 Mg Tablet) 4 mg PO Q6H PRN PRN PRN Reason: NAUSEA Last Admin: 06/15/20 14:18 Dose: 4 mg Documented by: Promethazine HCl (Promethazine 25 Mg/Ml Syringe) 6.25 mg IV Q3H PRN PRN PRN Reason: NAUSEA/VOMITING Simethicone (Simethicone 80 Mg Tablet) 80 mg PO Q12H PRN PRN PRN Reason: Gas pain Last Admin: 06/16/20 23:08 Dose: 80 mg Documented by: Sodium Chloride (0.9% Saline Lock 10 Ml Syringe) 10 - 40 ml IV UD PRN PRN Reason: SALINE FLUSH Last Admin: 06/16/20 02:54 Dose: 10 ml Documented by: Medical Necessity - Tobacco Use Smoking Status: Never smoker Assessment/Plan Nausea and vomiting status post total abdominal hysterectomy and bilateral salpingo-oophorectomy on postoperative day #4. We will switch Protonix and Phenergan to IV and check abdominal x-ray. Will supplement potassium with IV fluid. No evidence of infection. Anemia appears stable after overnight hydration but patient will need some supplemental iron once her nausea clears. Uncertain etiology of nausea and vomiting so we will consult medicine. Pain well controlled with ibuprofen as patient is refusing Tylenol. No narcotic for more than 24 hours.
--- NOTE | 2020-06-17 09:40 | RAD_ITS ---
STUDY: X-RAY - ABDOMEN/PELVIS REASON FOR EXAM: Female, 39 years old. NAUSEA/VOMITING TECHNIQUE: AP supine and upright views of the abdomen and pelvis. COMPARISON: None. FINDINGS: Normal visualized lung bases. There is an abundance of fecal material throughout the colon. There is no demonstrated free abdominal air. The visualized liver, spleen and kidneys are grossly normal in size and morphology. Normal soft tissue structures. Normal visualized osseous structures. RAD/Abd Inc Decub and/or Erect IMPRESSION: Large amount of fecal material is seen in the colon. Electronically Signed: Pieter Haines MD at 13:48 EST , Service support ,
--- NOTE | 2020-06-17 10:03 | PCM.CONS.GEN ---
Problem List (1) Hypokalemia Status: Acute (2) Intractable nausea and vomiting Status: Acute (3) Postoperative anemia Status: Acute (4) Status post total abdominal hysterectomy and bilateral salpingo-oophorectomy Status: Acute Reason for Consult Date of Consultation: 06/17/20 Reason for Consultation: Intractable postoperative nausea and vomiting. History of Present Illness: The patient is a 39 year old F with no significant past medical history underwent elective total abdominal hysterectomy and bilateral salpingo-oophorectomy for left ovarian mucinous cystadenofibroma and I was asked to see this patient for postoperative intractable nausea and vomiting that has been persistent for the last 3 postoperative days. Patient stated that her symptoms started the day after surgery when she was started on diet, started having nausea and vomiting, persistent, cannot keep anything down to her stomach and also started having epigastric pain. She described this pain as epigastric in location, burning pain, constant, and she continued to have persistent nausea and vomiting. Her lower abdominal pain due to surgery has been manageable. She denied constipation or diarrhea. She denied fever or chills. She denied smoking or drinking alcohol. Currently, her vital signs are stable. Routine blood work reviewed, revealed hemoglobin of 7.2 g/dL and potassium of 3.1, otherwise unremarkable. Past Medical History Allergies No Known Allergies Allergy (Verified 06/09/20 08:06) Home Medications: Ambulatory Orders Medication Instructions Recorded Docusate Sodium [Colace] 100 mg PO BID PRN PRN #60 cap 06/14/20 Estradiol 2 mg PO DAILY #100 tab 06/14/20 Oxycodone [Oxyir] 5 mg PO Q6H PRN PRN 7 Days #20 tab 06/14/20 Surgical History: hysterectomy, - - Bilateral salpingo-oophorectomy. Psychiatric History: No pertinent psych hx [employer] FORMER History: No pertinent [employer] history Lives: Spouse/ Significant Other Smoking Status: Never smoker Alcohol: None Drugs: None - *Family History Maternal History Items: No pertinent history Paternal History Items: No pertinent history Review of Systems Constitutional: Reports: Anorexia. Denies: Chills, Fever, Weakness Eyes: Denies: Blurred vision, Double vision, Drainage, Redness HEENT: Denies: Difficulty Hearing, Dysphasia, Ear Pain, Eye Pain, Nasal Congestion, Sore Throat Cardiovascular: Denies: Chest Pain, Chest Pressure, Edema, Heaviness, Palpitations, Syncope Respiratory: Denies: Cough, Pleuritic Pain, Shortness of Breath, Sputum production, Wheezing Gastrointestinal: Reports: Abdominal Pain, Nausea, Vomiting. Denies: Constipation, Diarrhea, Hematochezia, Melena Genitourinary: Denies: Dysuria, Frequency, Hematuria Musculoskeletal: Denies: Arm Pain, Back Pain, Foot Pain Skin: Denies: Dryness, Rash Neurological: Denies: Balance problems, Double vision, Change in Speech, Slurred speech, Confusion, Headaches, Incoordination Psychiatric: Denies: Anxiety, Depression Endocrine: Denies: Change in Body Habitus, Polydipsia, Polyuria - Physical Exam Vitals/I&O's: Vital Signs Temp Pulse Resp BP Pulse Ox 98.9 F 97 16 107/72 99 06/17/20 08:10 06/17/20 08:10 06/17/20 08:10 06/17/20 08:10 06/17/20 08:10 Oxygen Flow Rate (L/min) 1 Oxygen Delivery Method Room Air Weight: 120 lb 9.486 oz Body Mass Index (BMI) 22.0 Intake and Output for Last 24 Hours 06/15/20 06/16/20 06/17/20 23:59 23:59 23:59 Intake Total 2835 / 2835 1597.5 / 1597.5 1732.5 / 1732.5 Output Total 1900 / 1900 900 / 900 1300 / 1300 Balance 935 / 935 697.5 / 697.5 432.5 / 432.5 General: Alert, Oriented x3, Cooperative, No apparent distress HEENT: Atraumatic, PERRLA, EOMI, Normocephalic Oral: Moist Mucosa, No Gingival or Mucosal Lesions/ Ulcerations Neck: Supple, No JVD, Negative Carotid Bruits, Trachea Midline, Thyroid Normal Size and Texture Lungs: Clear to auscultation, Normal air movement, No rhonchi, No wheeze, No rales, Diminished Cardiovascular: Regular rate, Regular Rhythm, Normal S1, Normal S2, PMI Normal Abdomen: Bowel Sounds Present, Soft, Non-Distended, No Hepato-splenomegaly, Tender - Epigastric and lower abdominal tenderness, no guarding or rigidity. Extremities: No clubbing, No cyanosis, No edema Skin: No rashes, No breakdown Lymphatic: No Cervical, Supraclavicular, or Inguinal Adenopathy Neurological: Cranial nerves II-XII grossly intact, Motor Exam 5/5 strength throughout Psych/Mental Status: Normal Affect, Appropriate, Alert and oriented to time, place, person, mood and affect Laboratory Results 06/17/20 06:20: WBC 9.1, RBC 2.38 L, Hgb 7.2 L, Hct 22.2 L, MCV 93.3, MCH 30.3, MCHC 32.4, RDW Std Deviation 43.8, RDW Coeff of Joaquin 13.0, Plt Count 179, MPV 11.0, Immature Gran % (Auto) 0.500, Neut % (Auto) 77.5 H, Lymph % (Auto) 13.9 L, [place] % (Auto) 7.7, Eos % (Auto) 0.1, Baso % (Auto) 0.3, Absolute Neuts (auto) 7.1, Absolute Lymphs (auto) 1.27, Nucleated RBC % 0 06/17/20 06:20: Sodium 142, Potassium 3.1 L, Chloride 107, Carbon Dioxide 29.0, Anion Gap 6 06/17/20 06:20: Magnesium Pending, Total Bilirubin Pending, Direct Bilirubin Pending, AST Pending, ALT Pending, Alkaline Phosphatase Pending, Total Protein Pending, Albumin Pending, Lipase Pending Current Medications Docusate Sodium (Docusate Sodium 100 Mg Capsule) 100 mg PO BID [facility] Last Admin: 06/17/20 09:07 Dose: 100 mg Documented by: Pantoprazole Sodium 40 mg/ (Sodium Chloride) 110 mls @ 330 mls/hr IV Q12 [facility] Magnesium Chloride (Magnesium Chloride 64 Mg Delay Rel.Tablet) 128 mg PO DAILY PRN PRN PRN Reason: Constipation Simethicone (Simethicone 80 Mg Tablet) 80 mg PO Q12H PRN PRN PRN Reason: Gas pain Last Admin: 06/16/20 23:08 Dose: 80 mg Documented by: Sodium Chloride (0.9% Saline Lock 10 Ml Syringe) 10 - 40 ml IV UD PRN PRN Reason: SALINE FLUSH Last Admin: 06/17/20 09:23 Dose: 10 ml Documented by: Assessment/Plan All Active Problems Hypokalemia (Acute) Intractable nausea and vomiting (Acute) Postoperative anemia (Acute) Status post total abdominal hysterectomy and bilateral salpingo-oophorectomy (Acute) This is a 39 years old female patient underwent elective total abdominal hysterectomy and bilateral salpingo-oophorectomy and I am seeing this patient in consultation for postoperative intractable nausea and vomiting. #1 status post total abdominal hysterectomy/bilateral salpingo-oophorectomy: This was done for left ovarian mucinous cyst adenofibroma, postoperative day 3. She was started on ibuprofen this morning for pain control. This may exaggerate her gastritis symptoms. OPHTHALMIC SURGICAL ASSISTANT is managing. Plan to use IV morphine as needed for pain if okay with OPHTHALMIC SURGICAL ASSISTANT, repeat CBC and BMP tomorrow morning. #2 postoperative intractable nausea and vomiting: LFT and lipase were unremarkable. This is probably due to severe stress gastritis. She was started on IV Protonix twice daily this morning as well as IV Phenergan. Plan to increase IV Phenergan to 12.5 mg every 8 hours, start IV Compazine, DC Zofran. #3 acute postoperative anemia: It is likely due to blood loss during surgery as well as hemodilution. Hemoglobin was 14.2 g/dL 1 week ago, today's hemoglobin 7.2 g/dL. Plan to monitor, repeat CBC tomorrow morning. #4 hypokalemia: Secondary to persistent nausea and vomiting. Serum magnesium was normal. Plan to replace potassium with IV potassium chloride. #5 DVT prophylaxis: SCDs. This note was generated with multi[employer] biotecation software. It may contain incorrect words, spelling, and punctuation that were not noted in checking the note before signing. Inpatient E&M: 86312 Init Hosp L2
[2020-06-17 10:21] LABS: AST(SGOT) 15 U/L (15-37); Alanine Aminotransfer ALT/SGPT 14 U/L (13-56); Albumin, Serum 2.7 g/dL (3.2-5.0); Alkaline Phosphatase 54 U/L (45-117); Bilirubin, Direct 0.16 mg/dL (0.00-0.30); Globulin 3.3 g/dL (2.2-4.2); Lipase 40 U/L (73-393); Magnesium 1.9 mg/dL (1.6-2.6)
[2020-06-17] MEDS: proCHLORPERazine 10 MG/2 ML Vial 5 MG IV (10:56)
--- NOTE | 2020-06-17 16:04 | NURSING ---
Student documentation reviewed.
[2020-06-17] MEDS: Bisacodyl 10 MG Suppository RC (17:21)
[2020-06-18 02:15] VITALS: BP 103/66; PULSE 104; RESP 16; TEMP 37; O2SAT 98
[2020-06-18 05:36] LABS: Absolute Lymphocyte Count 1.42 X10^3/uL (0.83-4.51); Absolute Neutrophil Count 4.3 X10^3/uL (2.0-7.7); Basophil# 0.03 X10^3/uL; Basophil% 0.5 % (0-1); Eosinophils% 1.6 % (0-5); Hematocrit 20.2 % (37-47); Hemoglobin 6.5 g/dL (12.0-15.0); Lymphocyte # 1.42 X10^3/ul (4.0); Lymphocyte % 22.3 % (19-41); Mean Corp Hgb Conc 32.2 g/dL (32-36); Mean Corpuscular Hgb 29.8 pg (27.0-32.0); Mean Corpuscular Volume 92.7 fL (81-99); Monocyte# 0.47 X10^3/uL; Monocyte% 7.4 % (0-10); NRBC Flagged by Analyzer 0 % (0-5); Neutrophil # 4.31 X10^3/uL (2.7-7.7); Neutrophil % 67.7 % (47-70); Platelet Count 170 K/mm3 (150-450); RBC Distribution Width CV 12.8 % (11.6-14.6); RBC Distribution Width SD 43.1 fl (35.1-43.9); Red Blood Count 2.18 M/mm3 (4.2-5.4); White Blood Count 6.4 K/mm3 (4.4-11.0)
[2020-06-18 05:55] LABS: Anion Gap 6 (5-15); BUN 11 mg/dL (7-18); BUN/Creat Ratio 33.6 RATIO (10-20); Calcium,Total 7.9 mg/dL (8.5-10.1); Chloride 111 mmol/L (98-107); Creatinine, Serum 0.33 mg/dL (0.55-1.02); EST Glomerular Filtration Rate 235 mL/min (>60); Est Glom Filt Rate - Afr Amer 285 mL/min (>60); Estimated Creatinine Clearance 177.44 ml/min; Glucose 88 mg/dL (74-106); Potassium 3.8 mmol/L (3.5-5.1); Sodium Level 142 mmol/L (136-145)
[2020-06-18 06:41] VITALS: O2SAT 98
[2020-06-18] MEDS: Docusate Sodium 100 MG Capsule PO (08:29)
[2020-06-18 08:30] VITALS: BP 107/67; PULSE 110; RESP 18; TEMP 37.1; O2SAT 100
[2020-06-18] MEDS: Bisacodyl 10 MG Suppository RC (08:30)
--- NOTE | 2020-06-18 09:02 | PCM.PROGNOTE ---
Patient Problems: Active and Suspected Problems Hypokalemia (Acute) Intractable nausea and vomiting (Acute) Postoperative anemia (Acute) Status post total abdominal hysterectomy and bilateral salpingo-oophorectomy (Acute) Subjective: Chief complaint: Follow-up after consultation for intractable postoperative nausea and vomiting and anemia. Patient seen and examined. No acute events overnight. This morning, she is feeling significantly better. She has no more nausea or vomiting. She has been tolerating clear liquids. She feels much much better. Her vital signs are stable apart from mild tachycardia. - Physical Exam Vitals/I&O's: Vital Signs Temp Pulse Resp BP Pulse Ox 98.6 F 104 H 16 103/66 98 06/18/20 02:15 06/18/20 02:15 06/18/20 02:15 06/18/20 02:15 06/18/20 02:15 Oxygen Flow Rate (L/min) 1 Oxygen Delivery Method Room Air Weight: 120 lb 9.486 oz Body Mass Index (BMI) 22.0 Intake and Output for Last 24 Hours 06/16/20 06/17/20 06/18/20 23:59 23:59 23:59 Intake Total 1597.5 / 1597.5 3713.75 / 3963.75 1186.25 / 1186.25 Output Total 900 / 900 1850 / 2250 400 / 400 Balance 697.5 / 697.5 1863.75 / 1713.75 786.25 / 786.25 General: Alert, Oriented x3, Cooperative, No apparent distress HEENT: Atraumatic, PERRLA, EOMI, Normocephalic Oral: Moist Mucosa, No Gingival or Mucosal Lesions/ Ulcerations Neck: Supple, No JVD, Negative Carotid Bruits, Trachea Midline, Thyroid Normal Size and Texture Lungs: Clear to auscultation, Normal air movement, No rhonchi, No wheeze, No rales Cardiovascular: Regular rate, Regular Rhythm, Normal S1, Normal S2, PMI Normal, Tachycardic Abdomen: Bowel Sounds Present, Soft, Non Tender, Non-Distended, No Hepato-splenomegaly Extremities: No clubbing, No cyanosis, No edema Skin: No rashes, No breakdown Lymphatic: No Cervical, Supraclavicular, or Inguinal Adenopathy Neurological: Cranial nerves II-XII grossly intact, Neuro grossly intact Psych/Mental Status: Normal Affect, Appropriate Laboratory Results 06/17/20 06:20: Magnesium 1.9, Total Bilirubin 0.50, Direct Bilirubin 0.16, AST 15, ALT 14, Alkaline Phosphatase 54, Total Protein 6.0 L, Albumin 2.7 L, Globulin 3.3, Lipase 40 L 06/18/20 05:20: WBC 6.4, RBC 2.18 L, Hgb 6.5 L, Hct 20.2 L, MCV 92.7, MCH 29.8, MCHC 32.2, RDW Std Deviation 43.1, RDW Coeff of Joaquin 12.8, Plt Count 170, MPV 10.0, Immature Gran % (Auto) 0.500, Neut % (Auto) 67.7, Lymph % (Auto) 22.3, [place] % (Auto) 7.4, Eos % (Auto) 1.6, Baso % (Auto) 0.5, Absolute Neuts (auto) 4.3, Absolute Lymphs (auto) 1.42, Nucleated RBC % 0 06/18/20 05:20: Sodium 142, Potassium 3.8, Chloride 111 H, Carbon Dioxide 25.0, Anion Gap 6, BUN 11, Creatinine 0.33 L, Estim Creat Clear Calc 177.44, Est GFR (MDRD) Af Amer 285, Est GFR (MDRD) Non-Af 235, BUN/Creatinine Ratio 33.6 H, Glucose 88, Calcium 7.9 L Current Medications Bisacodyl (Bisacodyl 10 Mg Suppository) 10 mg RC DAILY [facility] Last Admin: 06/18/20 08:30 Dose: 10 mg Documented by: Docusate Sodium (Docusate Sodium 100 Mg Capsule) 100 mg PO BID [facility] Last Admin: 06/18/20 08:29 Dose: 100 mg Documented by: Pantoprazole Sodium 40 mg/ (Sodium Chloride) 110 mls @ 330 mls/hr IV Q12 [facility] Last Admin: 06/18/20 08:28 Dose: 330 mls/hr Documented by: Potassium Chloride 20 meq/ (Lactated Ringer's) 1,010 mls @ 75 mls/hr IV .[id number] [facility] Last Infusion: 06/18/20 08:29 Dose: 0 mls/hr Documented by: Magnesium Chloride (Magnesium Chloride 64 Mg Delay Rel.Tablet) 128 mg PO DAILY PRN PRN PRN Reason: Constipation Prochlorperazine Edisylate (Prochlorperazine 10 Mg/2 Ml Vial) 5 mg IV Q8H PRN PRN PRN Reason: NAUSEA/VOMITING Last Admin: 06/17/20 10:56 Dose: 5 mg Documented by: Promethazine HCl (Promethazine 25 Mg/Ml Syringe) 12.5 mg IV Q6H PRN PRN PRN Reason: NAUSEA/VOMITING Simethicone (Simethicone 80 Mg Tablet) 80 mg PO Q12H PRN PRN PRN Reason: Gas pain Last Admin: 06/16/20 23:08 Dose: 80 mg Documented by: Sodium Chloride (0.9% Saline Lock 10 Ml Syringe) 10 - 40 ml IV UD PRN PRN Reason: SALINE FLUSH Last Admin: 06/17/20 10:57 Dose: 10 ml Documented by: Medical Necessity - Tobacco Use Smoking Status: Never smoker Assessment/Plan All Active Problems Hypokalemia (Acute) Intractable nausea and vomiting (Acute) Postoperative anemia (Acute) Status post total abdominal hysterectomy and bilateral salpingo-oophorectomy (Acute) This is a 39 years old female patient underwent elective total abdominal hysterectomy and bilateral salpingo-oophorectomy and I am seeing this patient in consultation for postoperative intractable nausea and vomiting. 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 She denied abdominal pain, she has no vaginal bleeding or bleeding at the incision site. [employer] is managing. #2 postoperative intractable nausea and vomiting: She has been on Protonix, Compazine and Phenergan. Today, she has no more nausea vomiting, tolerating clear liquids. LFT and lipase were unremarkable. Her symptoms attributed to stress gastritis. Recommend Protonix 40 mg p.o. daily for 2 weeks, prescription sent. #3 acute postoperative anemia: It is likely due to blood loss during surgery as well as hemodilution. Hemoglobin was 14.2 g/dL 1 week ago, today's hemoglobin 6.4 g/dL, still dropping. She has no active bleeding. Since she is a young patient and not actively bleeding, and not sure if we should give her blood transfusion. I will leave that to [employer]. #4 hypokalemia: Secondary to persistent nausea and vomiting. Serum magnesium was normal. Potassium replaced and corrected, it is 3.8 today. #5 DVT prophylaxis: SCDs. This note was generated with [employer] software. It may contain incorrect words, spelling, and punctuation that were not noted in checking the note before signing. Inpatient E&M: 18301 Subs Hosp L2
--- NOTE | 2020-06-18 09:21 | PCM.PN.OB ---
Patient Problems: Active and Suspected Problems Hypokalemia (Acute) Intractable nausea and vomiting (Acute) Postoperative anemia (Acute) Status post total abdominal hysterectomy and bilateral salpingo-oophorectomy (Acute) Subjective: Patient without complaints. Feeling much better after bowel movement last evening. Denies any nausea and vomiting at present. Also denies any orthostatic changes. Up in [place] ambulating without difficulty or issues. Minimal to no vaginal bleeding reported. Wants to go home. Still on clear liquid diet but thinks she can eat regular food today. Objective: Wound is clean, dry, intact. Good urine output. Slightly tachycardic. Hemoglobin 6.5 this morning likely due to hemodilution. - Physical Exam Vitals/I&O's: Vital Signs Temp Pulse Resp BP Pulse Ox 98.6 F 104 H 16 103/66 98 06/18/20 02:15 06/18/20 02:15 06/18/20 02:15 06/18/20 02:15 06/18/20 02:15 Oxygen Flow Rate (L/min) 1 Oxygen Delivery Method Room Air Weight: 120 lb 9.486 oz Body Mass Index (BMI) 22.0 Intake and Output for Last 24 Hours 06/16/20 06/17/20 06/18/20 23:59 23:59 23:59 Intake Total 1597.5 / 1597.5 3713.75 / 3963.75 1186.25 / 1186.25 Output Total 900 / 900 1850 / 2250 400 / 400 Balance 697.5 / 697.5 1863.75 / 1713.75 786.25 / 786.25 Laboratory Results 06/17/20 06:20: Magnesium 1.9, Total Bilirubin 0.50, Direct Bilirubin 0.16, AST 15, ALT 14, Alkaline Phosphatase 54, Total Protein 6.0 L, Albumin 2.7 L, Globulin 3.3, Lipase 40 L 06/18/20 05:20: WBC 6.4, RBC 2.18 L, Hgb 6.5 L, Hct 20.2 L, MCV 92.7, MCH 29.8, MCHC 32.2, RDW Std Deviation 43.1, RDW Coeff of Joaquin 12.8, Plt Count 170, MPV 10.0, Immature Gran % (Auto) 0.500, Neut % (Auto) 67.7, Lymph % (Auto) 22.3, [place] % (Auto) 7.4, Eos % (Auto) 1.6, Baso % (Auto) 0.5, Absolute Neuts (auto) 4.3, Absolute Lymphs (auto) 1.42, Nucleated RBC % 0 06/18/20 05:20: Sodium 142, Potassium 3.8, Chloride 111 H, Carbon Dioxide 25.0, Anion Gap 6, BUN 11, Creatinine 0.33 L, Estim Creat Clear Calc 177.44, Est GFR (MDRD) Af Amer 285, Est GFR (MDRD) Non-Af 235, BUN/Creatinine Ratio 33.6 H, Glucose 88, Calcium 7.9 L Current Medications Bisacodyl (Bisacodyl 10 Mg Suppository) 10 mg RC DAILY [facility] Last Admin: 06/18/20 08:30 Dose: 10 mg Documented by: Docusate Sodium (Docusate Sodium 100 Mg Capsule) 100 mg PO BID [facility] Last Admin: 06/18/20 08:29 Dose: 100 mg Documented by: Pantoprazole Sodium 40 mg/ (Sodium Chloride) 110 mls @ 330 mls/hr IV Q12 [facility] Last Admin: 06/18/20 08:28 Dose: 330 mls/hr Documented by: Potassium Chloride 20 meq/ (Lactated Ringer's) 1,010 mls @ 75 mls/hr IV .[id number] [facility] Last Infusion: 06/18/20 08:29 Dose: 0 mls/hr Documented by: Magnesium Chloride (Magnesium Chloride 64 Mg Delay Rel.Tablet) 128 mg PO DAILY PRN PRN PRN Reason: Constipation Prochlorperazine Edisylate (Prochlorperazine 10 Mg/2 Ml Vial) 5 mg IV Q8H PRN PRN PRN Reason: NAUSEA/VOMITING Last Admin: 06/17/20 10:56 Dose: 5 mg Documented by: Promethazine HCl (Promethazine 25 Mg/Ml Syringe) 12.5 mg IV Q6H PRN PRN PRN Reason: NAUSEA/VOMITING Simethicone (Simethicone 80 Mg Tablet) 80 mg PO Q12H PRN PRN PRN Reason: Gas pain Last Admin: 06/16/20 23:08 Dose: 80 mg Documented by: Sodium Chloride (0.9% Saline Lock 10 Ml Syringe) 10 - 40 ml IV UD PRN PRN Reason: SALINE FLUSH Last Admin: 06/17/20 10:57 Dose: 10 ml Documented by: Medical Necessity - Tobacco Use Smoking Status: Never smoker Assessment/Plan All Active Problems Hypokalemia (Acute) Intractable nausea and vomiting (Acute) Postoperative anemia (Acute) Status post total abdominal hysterectomy and bilateral salpingo-oophorectomy (Acute) Doing well postoperative day #4 status post total abdominal hysterectomy and bilateral salpingo-oophorectomy. Gastritis and intractable nausea and vomiting has resolved likely due to Protonix. I discussed with the patient the need to continue this medication for 2 weeks after her surgery. We will switch to regular diet this morning and repeat hemoglobin at noon to confirm blood counts are stable. Discussed need for possible transfusion if hemoglobin drops to less than 6.0. Discussed the need with the patient to take iron supplements at home for the next several weeks. Home-going instructions given otherwise. Appreciate consultation and recommendations from internal medicine.
--- NOTE | 2020-06-18 09:26 | DS.PCM_ITS ---
Discharge Summary Date of Admission: 06/14/20 Date of Discharge: 06/18/20 Summary: Admission Diagnosis: Large Left Ovarian Cyst Discharge Diagnosis: Large Left Ovarian Cyst, Serous Cystadenofibroma, Intractable Nausea and Vomiting, Blood Loss Anemia from Surgery, Gastritis Procedure: Total Abdominal Hysterectomy and Bilateral Salpingo-Oophorectomy Consultation: Hospitalist for gastritis and intractable nausea and vomiting HPI: This is a 39-year-old patient who presents for hysterectomy and bilateral salpingo-oophorectomy for large ovarian cyst which causes intermittent pain. PE: Unremarkable. Hospital Course: The patient is a 39-year-old who presented for the above surgery. She subsequently had a total abdominal hysterectomy and bilateral salpingo-oophorectomy. This was done without complication and with normal blood loss. Postoperatively the patient did well but began having problems with nausea and vomiting almost immediately after her surgery. She did not use narcotic after postoperative day #1 and her nausea and vomiting persisted until postoperative day #3. Abdominal x-ray showed excessive fecal material but no evidence of ileus. She became hypokalemic from vomiting which was replaced with IV potassium. Hemoglobin drifted down to 6.5 on postoperative day #4 and it was felt that the majority of this drop was from hemodilution and blood loss from the surgery. She was started on Protonix which helped her nausea and vomiting to resolve and on postoperative day #4 it was felt that she was ready for discharge. It was felt that the cause of her nausea and vomiting was gastritis possibly exacerbated by the stress of surgery. Homegoing Instruction: She was instructed not to drive for several days, not to put anything in the vagina for 6 weeks, not to lift >25 lbs for 6 weeks and to call the office for an appointment in 2 weeks and 6 weeks. Discharge Medications: She was given a prescription for Oxycodone, Colace, estradiol, and Protonix and also plans to use Aleve or Motrin or Tylenol at home as needed for pain and constipation. She was also instructed to use iron sulfate 325 mg twice daily for 4 to 6 weeks. Patient Problems: Active and Suspected Problems Hypokalemia (Acute) Intractable nausea and vomiting (Acute) Postoperative anemia (Acute) Status post total abdominal hysterectomy and bilateral salpingo-oophorectomy (Acute) - Physical Exam Vitals/I&O's: Vital Signs Temp Pulse Resp BP Pulse Ox 98.6 F 104 H 16 103/66 98 06/18/20 02:15 06/18/20 02:15 06/18/20 02:15 06/18/20 02:15 06/18/20 02:15 Oxygen Flow Rate (L/min) 1 Oxygen Delivery Method Room Air Weight: 120 lb 9.486 oz Body Mass Index (BMI) 22.0 Intake and Output for Last 24 Hours 06/16/20 06/17/20 06/18/20 23:59 23:59 23:59 Intake Total 1597.5 / 1597.5 3713.75 / 3963.75 1186.25 / 1186.25 Output Total 900 / 900 1850 / 2250 400 / 400 Balance 697.5 / 697.5 1863.75 / 1713.75 786.25 / 786.25 Laboratory Results 06/17/20 06:20: Magnesium 1.9, Total Bilirubin 0.50, Direct Bilirubin 0.16, AST 15, ALT 14, Alkaline Phosphatase 54, Total Protein 6.0 L, Albumin 2.7 L, Globulin 3.3, Lipase 40 L 06/18/20 05:20: WBC 6.4, RBC 2.18 L, Hgb 6.5 L, Hct 20.2 L, MCV 92.7, MCH 29.8, MCHC 32.2, RDW Std Deviation 43.1, RDW Coeff of Joaquin 12.8, Plt Count 170, MPV 10.0, Immature Gran % (Auto) 0.500, Neut % (Auto) 67.7, Lymph % (Auto) 22.3, [place] % (Auto) 7.4, Eos % (Auto) 1.6, Baso % (Auto) 0.5, Absolute Neuts (auto) 4.3, Absolute Lymphs (auto) 1.42, Nucleated RBC % 0 06/18/20 05:20: Sodium 142, Potassium 3.8, Chloride 111 H, Carbon Dioxide 25.0, Anion Gap 6, BUN 11, Creatinine 0.33 L, Estim Creat Clear Calc 177.44, Est GFR (MDRD) Af Amer 285, Est GFR (MDRD) Non-Af 235, BUN/Creatinine Ratio 33.6 H, Glucose 88, Calcium 7.9 L Current Medications Bisacodyl (Bisacodyl 10 Mg Suppository) 10 mg RC DAILY [facility] Last Admin: 06/18/20 08:30 Dose: 10 mg Documented by: Docusate Sodium (Docusate Sodium 100 Mg Capsule) 100 mg PO BID [facility] Last Admin: 06/18/20 08:29 Dose: 100 mg Documented by: Pantoprazole Sodium 40 mg/ (Sodium Chloride) 110 mls @ 330 mls/hr IV Q12 [facility] Last Admin: 06/18/20 08:28 Dose: 330 mls/hr Documented by: Potassium Chloride 20 meq/ (Lactated Ringer's) 1,010 mls @ 75 mls/hr IV .[id number] [facility] Last Infusion: 06/18/20 08:29 Dose: 0 mls/hr Documented by: Magnesium Chloride (Magnesium Chloride 64 Mg Delay Rel.Tablet) 128 mg PO DAILY PRN PRN PRN Reason: Constipation Prochlorperazine Edisylate (Prochlorperazine 10 Mg/2 Ml Vial) 5 mg IV Q8H PRN PRN PRN Reason: NAUSEA/VOMITING Last Admin: 06/17/20 10:56 Dose: 5 mg Documented by: Promethazine HCl (Promethazine 25 Mg/Ml Syringe) 12.5 mg IV Q6H PRN PRN PRN Reason: NAUSEA/VOMITING Simethicone (Simethicone 80 Mg Tablet) 80 mg PO Q12H PRN PRN PRN Reason: Gas pain Last Admin: 06/16/20 23:08 Dose: 80 mg Documented by: Sodium Chloride (0.9% Saline Lock 10 Ml Syringe) 10 - 40 ml IV UD PRN PRN Reason: SALINE FLUSH Last Admin: 06/17/20 10:57 Dose: 10 ml Documented by:
--- NOTE | 2020-06-18 09:35 | DCINST_ITS ---
Discharge Diet: No Restrictions Discharge Activity: Return to Normal Activity - do what you feel comfortable, but do not over do it. You may climb stairs, just use caution and hold the railing., May Not Drive - for a few days or while taking narcotic pain medications., May Shower, May Take a Tub Bath May resume sexual activity in: 6 weeks - nothing in the vagina. Call your doctor if your incision/area has: Continuous Slow Oozing, Sudden Increased Bleeding, Increased Pain/ Swelling, Increased Redness, Foul Smelling Discharge Call your doctor if you observe: Fever of 101 or Higher, Inability to urinate, Inability to have a bowel movement, Using more than one pad per hour, - - Some vaginal bleeding may be noted for up to 4-8 weeks. Cleanse incision/area with: - - Let the soapy water run over your incision, rinse and pat dry. Additional Dressing/Incision Instructions:: The white strips (Steri Strips) on your incision will fall off on their own. Additional Instructions: Use Ferrous Sulfate (Iron) 325 mg twice daily for 4-6 weeks to help resolve anemia. Recommend tylenol as needed for pain. Do NOT use the oxycodone unless absolutely necessary for severe pain. Allergies/Adverse Reactions: Allergies No Known Allergies Allergy (Verified 06/09/20 08:06) Medications to take at Discharge Docusate Sodium [Colace] 100 mg PO BID PRN PRN #60 cap 06/14/20 Estradiol 2 mg PO DAILY #100 tab 06/14/20 Oxycodone [Oxyir] 5 mg PO Q6H PRN PRN 7 Days #20 tab 06/14/20 Pantoprazole Sodium [Protonix] 40 mg PO DAILY #14 tab 06/18/20 The following prescriptions were given: Docusate Sodium [Colace] 100 mg PO BID PRN PRN #60 cap PRN Reason: Constipation Transmission Status: Received by [facility] Estradiol 2 mg PO DAILY #100 tab Transmission Status: Received by [facility] Oxycodone [Oxyir] 5 mg PO Q6H PRN PRN 7 Days #20 tab PRN Reason: Pain Score 6-10 Transmission Status: Received by [facility] Pantoprazole Sodium [Protonix] 40 mg PO DAILY #14 tab Transmission Status: Received by [facility] Primary Care Physician: Soco Kimball MD [Primary Care Provider] - Test Results: Test results from this visit will be discussed in further detail at your follow- up appointment, if applicable. Please Follow Up With: Ruslan Cabrales MD - [phone] When: in 2 weeks, please call to make an appointment.
[2020-06-18 12:25] LABS: Absolute Lymphocyte Count 1.16 X10^3/uL (0.83-4.51); Absolute Neutrophil Count 4.7 X10^3/uL (2.0-7.7); Basophil# 0.04 X10^3/uL; Basophil% 0.6 % (0-1); Eosinophils% 1.5 % (0-5); Hematocrit 22.3 % (37-47); Hemoglobin 7.2 g/dL (12.0-15.0); Lymphocyte # 1.16 X10^3/ul (4.0); Lymphocyte % 17.8 % (19-41); Mean Corp Hgb Conc 32.3 g/dL (32-36); Mean Corpuscular Volume 92.9 fL (81-99); Mean Platelet Vol. 10.2 fl (6.2-12.0); Monocyte# 0.44 X10^3/uL; Monocyte% 6.8 % (0-10); NRBC Flagged by Analyzer 0 % (0-5); Neutrophil # 4.71 X10^3/uL (2.7-7.7); Neutrophil % 72.4 % (47-70); Platelet Count 210 K/mm3 (150-450); RBC Distribution Width CV 12.9 % (11.6-14.6); RBC Distribution Width SD 42.5 fl (35.1-43.9); White Blood Count 6.5 K/mm3 (4.4-11.0)
[2020-06-18 13:30] VITALS: BP 108/75; PULSE 113; RESP 18; TEMP 37; O2SAT 100
[2020-06-18 16:30] VITALS: BP 112/72; PULSE 104; RESP 18; TEMP 36.9; O2SAT 99
--- NOTE | 2020-06-18 16:55 | NURSING ---
reviewed and agree with documentation by DEMETRI Wiseman
== END 2020-06-18 16:59 | disposition home or self-care (01) | DRG 742 ==
LOC: ACINP 09:34 → MS3 13:43
PROVIDERS: Anesthesiology; Hospitalist; Admitting Provider Obstetrics & Gynecology; PCP Family Medicine; Referring Provider Obstetrics & Gynecology; Visit Provider Obstetrics & Gynecology
PROC: 0UT90ZZ Resection of Uterus, Open Approach (ICD-10-PCS; CPT 58150; principal; 2020-06-14 11:05)
DX: D27.1 Benign neoplasm of left ovary (principal); D62 Acute posthemorrhagic anemia; Z20.822 Contact with and (suspected) exposure to COVID-19; N80.1 Endometriosis of ovary; E87.6 Hypokalemia; K29.60 Other gastritis without bleeding
CPT/HCPCS: 36415; 74019; 80048; 80051; 80076; 81025; 82565; 83690; 83735; 85025; 85027; 85610; 86850; 86900; 86901; 87426; 88305; 88307; 88331; 88332; 99251; C9803; J7120; A4216; G0463; J2405

== ENCOUNTER → 2021-01-05 16:03 | Outpatient (CLI) | payer OTHER, SELFPAY ==
[2021-01-07 07:47] LABS: Carcinoembryonic Antigen 1.7 ng/mL (0.0-4.7)
== END ==
PROVIDERS: PCP Family Medicine; Visit Provider Obstetrics & Gynecology
DX: C56.2 Malignant neoplasm of left ovary (principal)
CPT/HCPCS: 36415; 82378

== ENCOUNTER → 2021-08-24 | Outpatient (CLI) | payer OTHER, SELFPAY ==
[2021-08-26 12:47] LABS: Carcinoembryonic Antigen 0.9 ng/mL (0.0-4.7)
== END | disposition home or self-care (01) ==
LOC: LABSPEC 15:21
PROVIDERS: PCP Family Medicine; Visit Provider Obstetrics & Gynecology
DX: C56.2 Malignant neoplasm of left ovary (principal)
CPT/HCPCS: 82378

== ENCOUNTER → 2022-01-30 | Outpatient (CLI) | payer SELFPAY | END | disposition home or self-care (01) | LOC: WOBLAB 10:14 | PROVIDERS: PCP Family Medicine; Visit Provider Student in an Organized Health Care Education/Training Program | DX: D39.10 Neoplasm of uncertain behavior of unspecified ovary (principal) | CPT/HCPCS: 36415; 82378 ==

== ENCOUNTER → 2022-07-31 | Outpatient (CLI) | payer OTHER, SELFPAY ==
[2022-08-01 11:20] LABS: Carcinoembryonic Antigen 1.1 ng/mL (0.0-4.7)
== END | disposition home or self-care (01) ==
PROVIDERS: PCP Family Medicine; Visit Provider Student in an Organized Health Care Education/Training Program
DX: D39.10 Neoplasm of uncertain behavior of unspecified ovary (principal)
CPT/HCPCS: 36415; 82378

== ENCOUNTER → 2023-01-09 | Outpatient (CLI) | payer OTHER, SELFPAY ==
[2023-01-09 11:12] LABS: Vitamin D,25 Hydroxy 24.7 ng/mL
[2023-01-09 11:27] LABS: T4 Free Direct 0.93 ng/dL (0.76-1.46); Thyroid Stim Hormone (TSH) 2.44 uIU/mL (0.358-3.74)
[2023-01-10 04:07] LABS: Carcinoembryonic Antigen 1.2 ng/mL (0.0-4.7)
== END | disposition home or self-care (01) ==
PROVIDERS: PCP Family Medicine; Visit Provider Student in an Organized Health Care Education/Training Program
DX: D27.9 Benign neoplasm of unspecified ovary (principal); D39.10 Neoplasm of uncertain behavior of unspecified ovary; R53.83 Other fatigue
CPT/HCPCS: 36415; 82306; 82378; 84439; 84443